=== PATIENT | male | born 1965 | race American Indian/Alaskan Native ===

== ENCOUNTER 2017-01-17 17:26 | Emergency (ER) | payer SELFPAY | END 2017-01-17 21:50 | disposition left against medical advice (07) | LOC: ED 17:26 | DX: H92.02 Otalgia, left ear (principal); Z53.21 Procedure and treatment not carried out due to patient leaving prior to being seen by health care provider ==

== ENCOUNTER 2017-01-28 04:03 | Emergency (ER) | payer SELFPAY ==
--- NOTE | 2017-01-28 07:50 | Emergency Department Report ---
ED ENT HPI - General Chief complaint: Earache Stated complaint: EAR PAIN Time Seen by Provider: 01/28/17 07:18 Source: patient Mode of arrival: Ambulatory Limitations: No Limitations - History of Present Illness Initial comments: 51-year-old male with a past medical history of hypertension comes in for complaint of left ear pain 2 weeks. Patient reports that feels like his ear is ringing it stopped up he can fill his heartbeat evident. This is been going on for about 2 weeks. Patient also reports he is out of his wet pressure medicine and was noted to have an elevated blood pressure in triage of 186/113. Patient reports that he is on verapamil 240 mg as well as hydrochlorothiazide 25 mg. He reports that he's been out of his medications for the last 2 months. Patient was recently started on this medication at [facility]. He has not had primary care or cardiology follow-up for blood pressure medicine. He has no known drug allergies. MD complaint: ear pain -: month(s) (2) Location: L ear Severity: severe Severity scale (0 -10): 8 Quality: aching Consistency: constant Improves with: none Worsens with: none Context- Ear: recent illness (colduri) Associated Symptoms: tinnitus, hearing loss - Related Data Previous Rx's Medication Instructions Recorded Last Taken Type Amoxicillin [Amoxicillin TAB] 875 mg PO BID #20 tablet 01/28/17 Unknown Rx Hydrochlorothiazide [HCTZ] 25 mg PO QDAY #60 tablet 01/28/17 Unknown Rx Loratadine/Pseudoephedrine 1 tab PO DAILY #30 tablet 01/28/17 Unknown Rx [Claritin-D 24Hr] Verapamil ER [Calan SR] 240 mg PO QDAY #60 tablet 01/28/17 Unknown Rx Allergies Allergy/AdvReac Type Severity Reaction Status Date / Time No Known Allergies Allergy Verified 01/28/17 04:33 ED Dental HPI - General Chief complaint: Earache Stated complaint: EAR PAIN Time Seen by Provider: 01/28/17 07:18 Source: patient Mode of arrival: Ambulatory Limitations: No Limitations - Related Data Previous Rx's Medication Instructions Recorded Last Taken Type Amoxicillin [Amoxicillin TAB] 875 mg PO BID #20 tablet 01/28/17 Unknown Rx Hydrochlorothiazide [HCTZ] 25 mg PO QDAY #60 tablet 01/28/17 Unknown Rx Loratadine/Pseudoephedrine 1 tab PO DAILY #30 tablet 01/28/17 Unknown Rx [Claritin-D 24Hr] Verapamil ER [Calan SR] 240 mg PO QDAY #60 tablet 01/28/17 Unknown Rx Allergies Allergy/AdvReac Type Severity Reaction Status Date / Time No Known Allergies Allergy Verified 01/28/17 04:33 ED Review of Systems ROS: Stated complaint: EAR PAIN Other details as noted in HPI Constitutional: denies: chills, fever Eyes: denies: eye pain, eye discharge, vision change ENT: ear pain, hearing loss Respiratory: denies: cough, shortness of breath, wheezing Cardiovascular: denies: chest pain, palpitations Endocrine: no symptoms reported Gastrointestinal: denies: abdominal pain, nausea, diarrhea Neurological: denies: headache, weakness, paresthesias Psychiatric: denies: anxiety, depression ED Past Medical Hx - Past Medical History Previous Medical History?: Yes Hx Hypertension: Yes - Surgical History Past Surgical History?: No - Social History Smoking Status: Current Every Day Smoker Substance Use Type: Alcohol - Medications Home Medications: Home Medications Medication Instructions Recorded Confirmed Last Taken Type Amoxicillin [Amoxicillin TAB] 875 mg PO BID #20 tablet 01/28/17 Unknown Rx Hydrochlorothiazide [HCTZ] 25 mg PO QDAY #60 tablet 01/28/17 Unknown Rx Loratadine/Pseudoephedrine 1 tab PO DAILY #30 tablet 01/28/17 Unknown Rx [Claritin-D 24Hr] Verapamil ER [Calan SR] 240 mg PO QDAY #60 tablet 01/28/17 Unknown Rx ED Physical Exam - General Limitations: No Limitations General appearance: alert, in no apparent distress - Head Head exam: Present: atraumatic, normocephalic - Expanded ENT Exam Expanded TM/Canal exam: Effusion: Left TM, Loss of Landmarks: Left TM - Neck Neck exam: Present: normal inspection. Absent: tenderness, lymphadenopathy ED Course Vital Signs 01/28/17 04:33 Temperature 98.5 F Pulse Rate 72 Respiratory 18 Rate Blood Pressure 186/113 O2 Sat by Pulse 100 Oximetry ED Medical Decision Making - Medical Decision Making Patient's been evaluated by this provider in fast track. Discussed with patient that we will discharge him on antibiotics for his left ear infusion. Discussed with patient that I will refill his blood pressure medicine and refer him to a primary care provider for further evaluation and management of hypertension. Discussed the patient I will refer him to a market research intern for further evaluation of his ear infusion. Patient verbalized understanding Critical care attestation.: If time is entered above; I have spent that time in minutes in the direct care of this critically ill patient, excluding procedure time. ED Disposition Clinical Impression: Acute otitis media with effusion of left ear, HTN (hypertension) Disposition: DISCHARGED TO HOME OR SELFCARE Is pt being admited?: No Does the pt Need Aspirin: No Condition: Stable Instructions: Hypertension (ED) Additional Instructions: Please take antibiotics as prescribed. Please follow up with market research intern for further evaluation to see if it's has resolved. Please take blood pressure medicine as prescribed I have listed a primary care provider in your discharge summary. Prescriptions: Amoxicillin [Amoxicillin TAB] 875 mg PO BID #20 tablet Hydrochlorothiazide [HCTZ] 25 mg PO QDAY #60 tablet Loratadine/Pseudoephedrine [Claritin-D 24Hr] 1 tab PO DAILY #30 tablet Verapamil ER [Calan SR] 240 mg PO QDAY #60 tablet Referrals: PRIMARY MD STEVE [Primary Care Provider] - 3-5 Days [facility] [Provider Group] - 3-5 Days FAIZAN CHERY MD [Staff Physician] - 3-5 Days Forms: Work/School Release Form(ED)
[2017-01-28 08:27] VITALS: BP 178/102
== END 2017-01-28 08:26 | disposition home or self-care (01) ==
LOC: ED 04:03
DX: H66.92 Otitis media, unspecified, left ear (principal); I10 Essential (primary) hypertension; F17.200 Nicotine dependence, unspecified, uncomplicated
CPT/HCPCS: 99282

== ENCOUNTER 2020-07-10 13:56 | Observation (INO) | payer SELFPAY ==
--- NOTE | 2020-07-10 14:07 | Emergency Department Report ---
Blank Doc - Documentation Documentation: 55-year-old male that presents with abdominal pain with n/v. This initial assessment/diagnostic orders/clinical plan/treatment(s) is/are subject to change based on patient's health status, clinical progression and re- assessment by fellow clinical providers in the ED. Further treatment and workup at subsequent clinical providers discretion. Patient/guardians urged not to elope from the ED as their condition may be serious if not clinically assessed and managed. Initial orders include: 1- Patient sent to [facility] for further evaluation and treatment 2- labs 3- UA
[2020-07-10 14:36] LABS: Basophils # (Auto) 0.1 K/mm3 (0.0-0.1); Basophils % (Auto) 0.6 % (0.0-1.8); Eosinophils # (Auto) 0.2 K/mm3 (0.0-0.4); Eosinophils % (Auto) 1.7 % (0.0-4.3); Hematocrit 45.4 % (35.5-45.6); Lymphocytes # (Auto) 3.2 K/mm3 (1.2-5.4); Lymphocytes % (Auto) 31.5 % (13.4-35.0); Mean Corpuscular HGB Conc 35 % (32-34); Mean Corpuscular Volume 96 fl (84-94); Monocytes # (Auto) 0.6 K/mm3 (0.0-0.8); Monocytes % (Auto) 6.4 % (0.0-7.3); Platelet Count 324 K/mm3 (140-440); Red Blood Count 4.71 M/mm3 (3.65-5.03); Red Cell Distribution Width 16.5 % (13.2-15.2)
[2020-07-10 14:57] LABS: Alanine Aminotransferase 20 units/L (7-56); Albumin 4.5 g/dL (3.9-5); BUN/Creatinine Ratio 9; Blood Urea Nitrogen 10 mg/dL (9-20); Calcium 9.5 mg/dL (8.4-10.2); Hemolysis Index 55
[2020-07-10] MEDS ORDERED: SODIUM CHLORIDE 0.9% 1000 ML 1,000 ML IV ONE ×2 (16:28→21:09)
[2020-07-10] MEDS ORDERED: ONDANSETRON 4 MG/2 ML INJ IV ONE ×2 (16:29→19:39)
[2020-07-10] MEDS ORDERED: HYDROmorphone 1 MG/1 ML INJ IV ONE ×2 (16:35→19:39)
[2020-07-10] MEDS ORDERED: FAMOTIDINE 20 MG/2 ML INJ IV ONE (16:35)
--- NOTE | 2020-07-10 16:39 | Emergency Department Report ---
ED Abdominal Pain HPI - General Chief Complaint: Abdominal Pain Stated Complaint: ABD PAIN Time Seen by Provider: 07/10/20 14:07 Source: patient Mode of arrival: Ambulatory Limitations: No Limitations - History of Present Illness Initial Comments: 55-year-old male with a past medical history hypertension, alcohol abuse, and alcohol abuse pancreatitis presents to the hospital complaints of upper abdominal pain, nausea, vomiting since yesterday. Patient states he has been recently drinking beer and liquor daily again. Last drink was yesterday. Kirk es history of alcohol withdrawal tremors or seizures. Pain is in the right upper quadrant described as a constant cramp/achy feeling without radiation. Pain is worse with palpation without alleviating factors positive nausea, vomiting, and diarrhea patient denies hematemesis, hematochezia, coffee-ground emesis, melena, or fever. Patient denies previous abdominal surgeries. Patient presents with hypertension has been noncompliant with BP meds at least for 1 year. - Related Data Previous Rx's Medication Instructions Recorded Last Taken Type Amoxicillin [Amoxicillin TAB] 875 mg PO BID #20 tablet 01/28/17 Unknown Rx Loratadine/Pseudoephedrine 1 tab PO DAILY #30 tablet 01/28/17 Unknown Rx [Claritin-D 24Hr] Verapamil ER [Calan SR] 240 mg PO QDAY #60 tablet 01/28/17 Unknown Rx hydroCHLOROthiazide [HCTZ] 25 mg PO QDAY #60 tablet 01/28/17 Unknown Rx Ibuprofen [Motrin 800 MG tab] 800 mg PO Q8HR PRN #15 tablet 06/10/18 Unknown Rx Valacyclovir HCl [Valtrex] 1,000 mg PO TID #21 tablet 06/10/18 Unknown Rx Allergies Allergy/AdvReac Type Severity Reaction Status Date / Time No Known Allergies Allergy Verified 01/28/17 04:33 ED Review of Systems ROS: Stated complaint: ABD PAIN Other details as noted in HPI Comment: All other systems reviewed and negative ED Past Medical Hx - Past Medical History Previous Medical History?: Yes Hx Hypertension: Yes - Surgical History Past Surgical History?: Yes Additional Surgical History: right hand surgery - Social History Smoking Status: Current Every Day Smoker Substance Use Type: Alcohol - Medications Home Medications: Home Medications Medication Instructions Recorded Confirmed Last Taken Type Amoxicillin [Amoxicillin TAB] 875 mg PO BID #20 tablet 01/28/17 Unknown Rx Loratadine/Pseudoephedrine 1 tab PO DAILY #30 tablet 01/28/17 Unknown Rx [Claritin-D 24Hr] Verapamil ER [Calan SR] 240 mg PO QDAY #60 tablet 01/28/17 Unknown Rx hydroCHLOROthiazide [HCTZ] 25 mg PO QDAY #60 tablet 01/28/17 Unknown Rx Ibuprofen [Motrin 800 MG tab] 800 mg PO Q8HR PRN #15 tablet 06/10/18 Unknown Rx Valacyclovir HCl [Valtrex] 1,000 mg PO TID #21 tablet 06/10/18 Unknown Rx ED Physical Exam - General Limitations: No Limitations - Other Other exam information: General: No acute distress Head: Atraumatic Eyes: normal appearance ENT: Moist mucous membranes Neck: Normal appearance, no midline tenderness Chest: Clear to auscultation bilaterally CV: Regular rate and rhythm Abdomen: Soft, normal bowel sounds, right upper quadrant tenderness, nondistended, no rebound or guarding Back: Normal inspection Extremity: Normal inspection, full range of motion Neuro: Alert O x 3, no facial asymmetry, speech clear, no gross motor sensory deficit Psych: Appropriate behavior Skin: No rash ED Course Vital Signs 07/10/20 07/10/20 07/10/20 14:09 16:55 18:02 Temperature 98.6 F Pulse Rate 83 72 Respiratory 20 Rate Blood Pressure 210/139 Blood Pressure 197/112 199/115 [Right] O2 Sat by Pulse 98 Oximetry 07/10/20 07/10/20 19:26 19:46 Temperature Pulse Rate 77 77 Respiratory 18 Rate Blood Pressure 191/109 191/109 Blood Pressure [Right] O2 Sat by Pulse 98 Oximetry - Reevaluation(s) Reevaluation #1: 07/10/20 19:38 Patient states his pain went from a 10/10 to a 6/10 after being treated with Dilaudid and Zofran. Nausea has improved and he has tolerated p.o. meds without vomiting. BP still remains high after initial dose of labetalol 10 then clonidine 0.1 mg. Additional pain and BP medicine ordered ED Medical Decision Making - Lab Data Result diagrams: 07/10/20 14:15 07/10/20 14:15 Lab Results 07/10/20 07/10/20 07/10/20 Range/Units 14:15 14:15 19:38 WBC 10.1 (4.5-11.0) K/mm3 RBC 4.71 (3.65-5.03) M/mm3 Hgb 16.0 H (11.8-15.2) gm/dl Hct 45.4 (35.5-45.6) % MCV 96 H (84-94) fl MCH 34 H (28-32) pg MCHC 35 H (32-34) % RDW 16.5 H (13.2-15.2) % Plt Count 324 (140-440) K/mm3 Lymph % (Auto) 31.5 (13.4-35.0) % [place] % (Auto) 6.4 (0.0-7.3) % Eos % (Auto) 1.7 (0.0-4.3) % Baso % (Auto) 0.6 (0.0-1.8) % Lymph # (Auto) 3.2 (1.2-5.4) K/mm3 [place] # (Auto) 0.6 (0.0-0.8) K/mm3 Eos # (Auto) 0.2 (0.0-0.4) K/mm3 Baso # (Auto) 0.1 (0.0-0.1) K/mm3 Seg Neutrophils % 59.8 (40.0-70.0) % Seg Neutrophils # 6.0 (1.8-7.7) K/mm3 Sodium 140 (137-145) mmol/L Potassium 3.8 (3.6-5.0) mmol/L Chloride 100.2 (98-107) mmol/L Carbon Dioxide 22 (22-30) mmol/L Anion Gap 22 mmol/L BUN 10 (9-20) mg/dL Creatinine 1.1 (0.8-1.3) mg/dL Estimated GFR > 60 ml/min BUN/Creatinine Ratio 9 % Glucose 106 H (75-100) mg/dL Calcium 9.5 (8.4-10.2) mg/dL Total Bilirubin 0.60 (0.1-1.2) mg/dL AST 22 (5-40) units/L ALT 20 (7-56) units/L Alkaline Phosphatase 101 (35-129) units/L Total Protein 8.0 (6.3-8.2) g/dL Albumin 4.5 (3.9-5) g/dL Albumin/Globulin Ratio 1.3 % Lipase 74 H (13-60) units/L Urine Color Straw (Yellow) Urine Turbidity Clear (Clear) Urine pH 6.0 (5.0-7.0) Ur Specific May 1.036 H (1.003-1.030) Urine Protein <15 mg/dl (Negative) mg/dL Urine Glucose (UA) Neg (Negative) mg/dL Urine Ketones Neg (Negative) mg/dL Urine Blood Neg (Negative) Urine Nitrite Neg (Negative) Urine Bilirubin Neg (Negative) Urine Urobilinogen < 2.0 (<2.0) mg/dL Ur Leukocyte Esterase Neg (Negative) Urine WBC (Auto) < 1.0 (0.0-6.0) /HPF Urine RBC (Auto) < 1.0 (0.0-6.0) /HPF U Epithel Cells (Auto) < 1.0 (0-13.0) /HPF Urine Mucus Few /HPF - Radiology Data Radiology results: report reviewed CT abdomen pelvis w con INDICATION: n,v,upper abd pain hx of pancreatitis. TECHNIQUE: All CT scans at this location are performed using the following dose modulation technique: Automated exposure control. Helical slices were obtained through the abdomen an d pelvis. 100 cc of Omnipaque 300 is administered. COMPARISON: None available. FINDINGS: Abdomen: No acute abnormality is seen in the lower chest. The liver, spleen, adrenal glands, and kidneys show no acute abnormality. The abdominal aorta is normal in diameter. There is no adenopathy. There is no obstruction. There is no free air. There is mild stranding in the fat adjacent to the head of the pancreas. There is mild wall thickening noted in the transverse colon and in the left and sigmoid colon. There is no inflammatory change around the colon. Pelvis: The appendix is unremarkable. There is no adenopathy. There are no abnormal fluid collections. IMPRESSION: 1. There is mild stranding in the fat adjacent to the head of the pancreas. This is a subtle finding. This may represent mild acute pancreatitis. Correlation with amylase and lipase levels is recommended. 2. There is wall thickening in the colon from the level the proximal transverse colon to the mid sigmoid colon characteristic of colitis.3 - Medical Decision Making Patient presents to the hospital with abdominal pain, nausea, vomiting, diarrhea, with recent increased alcohol use and symptoms similar to previous episodes of pancreatitis. CT confirms finding of pancreatitis but also associated colitis. Patient treated most with dose of Dilaudid and Zofran with improvement in nausea but persistent pain. Patient also has persistent hypertension despite IV labetalol and p.o. clonidine. Patient has been noncompliant with his BP meds for greater than 1 year. Patient treated with Levaquin and Flagyl for CT findings of colitis. Patient will be admitted to the hospitalist service for further treatment Critical Care Time: No Critical care attestation.: If time is entered above; I have spent that time in minutes in the direct care of this critically ill patient, excluding procedure time. ED Disposition Clinical Impression: Acute pancreatitis, Uncontrolled hypertension, Alcohol abuse, Colitis Disposition: OP ADMIT IP TO THIS HOSP Is pt being admited?: Yes Condition: Stable Time of Disposition: 21:11
--- NOTE | 2020-07-10 17:55 | Cat Scan Report ---
CT abdomen pelvis w con INDICATION: n,v,upper abd pain hx of pancreatitis. TECHNIQUE: All CT scans at this location are performed using the following dose modulation technique: Automated exposure control. Helical slices were obtained through the abdomen and pelvis. 100 cc of Omnipaque 30 0 is administered. COMPARISON: None available. FINDINGS: Abdomen: No acute abnormality is seen in the lower chest. The liver, spleen, adrenal glands, and kidn eys show no acute abnormality. The abdominal aorta is normal in diameter. There is no adenopathy. The re is no obstruction. There is no free air. There is mild stranding in the fat adjacent to the head of the pancreas. There is mild wall thickening noted in the transverse colon and in the left and sigmoid colon. There is no inflammatory change around the colon. Pelvis: The appendix is unremarkable. There is no adenopathy. There are no abnormal fluid collections . IMPRESSION: 1. There is mild stranding in the fat adjacent to the head of the pancreas. This is a subtle finding. This may represent mild acute pancreatitis. Correlation with amylase and lipase levels is recommende d. 2. There is wall thickening in the colon from the level the proximal transverse colon to the mid sigm oid colon characteristic of colitis.3 Signer Name: Jay Jay Larose MD Signed: 07/10/2020 5:50 PM Workstation Name: [id number]
[2020-07-10] MEDS ORDERED: cloNIDine 0.1 MG TAB PO ONE (18:02)
[2020-07-10 19:53] LABS: Bilirubin,Urine NEG (Negative); Blood,Urine NEG (Negative); Color,Urine Straw (Yellow); Mucus,Urine FEW /HPF; Protein,Urine <15 mg/dL mg/dL (Negative); RBC,Urine < 1.0 /HPF (0.0-6.0); Urobilinogen,Urine < 2.0 mg/dL (<2.0); WBC,Urine < 1.0 /HPF (0.0-6.0)
[2020-07-10] MEDS ORDERED: metroNIDAZOLE/NS 500 MG/100 ML 500 MG/100 ML BAG IV ONE ×2 (21:13→22:32)
[2020-07-10] MEDS ORDERED: ONDANSETRON 4 MG/2 ML INJ IV PRN (21:53)
[2020-07-10] MEDS ORDERED: ACETAMINOPHEN 325 MG TAB PO PRN (22:02)
[2020-07-10] MEDS ORDERED: HYDROmorphone 1 MG/1 ML INJ ONE (22:31)
[2020-07-10] MEDS ORDERED: SODIUM CHLORIDE 0.9% 1000 ML 1,000 ML ONE (22:31)
[2020-07-10] MEDS: HYDROmorphone 1 MG/1 ML INJ IV PRN (22:35)
[2020-07-11] MEDS: HEPARIN 5,000 UNIT/1 ML VIAL SUB-Q SCH ×2 (00:32→10:39)
[2020-07-11] MEDS: SODIUM CHLORIDE 0.9% 1000 ML 1,000 ML IV SCH ×2 (01:16→08:26)
[2020-07-11] MEDS: HYDROmorphone 1 MG/1 ML INJ IV PRN ×3 (02:41→10:41)
[2020-07-11] MEDS ORDERED: metroNIDAZOLE/NS 500 MG/100 ML 500 MG/100 ML BAG IV SCH (06:00)
--- NOTE | 2020-07-11 08:06 | Progress Note ---
Assessment and Plan - Patient Problems (1) Acute pancreatitis Current Visit: Yes Status: Acute (2) Alcohol abuse Current Visit: Yes Status: Acute (3) Colitis Current Visit: Yes Status: Acute (4) Hypertensive crisis Current Visit: Yes Status: Acute (5) Uncontrolled hypertension Current Visit: Yes Status: Acute Subjective Date of service: 07/11/20 Principal diagnosis: Acute pancreatitis colitis. Interval history: 55-year-old male with a history of hypertension, EtOH abuse pancreatitis in the past presents with abdominal pain in the right upper and lower quadrant after return to drinking. Patient has been drinking every day for several months now. Patient CT scan shows mild pancreatitis and colitis. Started on Levaquin Flagyl with aggressive pain control and IV volume hydration. Objective - Constitutional Vitals: Vital Signs - 12hr 07/10/20 07/10/20 07/10/20 21:22 22:35 22:54 Temperature 98.6 F Pulse Rate 73 73 73 Respiratory 18 18 Rate Blood Pressure 198/122 198/122 Blood Pressure 199/115 [Right] O2 Sat by Pulse 100 100 Oximetry 07/10/20 07/11/20 07/11/20 23:24 00:00 02:41 Temperature 98.3 F Pulse Rate 68 72 Respiratory 20 20 Rate Blood Pressure 194/111 Blood Pressure 144/80 [Right] O2 Sat by Pulse 98 Oximetry 07/11/20 07/11/20 07/11/20 05:52 06:17 06:18 Temperature 97.5 F L Pulse Rate 70 70 Respiratory 20 18 Rate Blood Pressure 199/108 199/108 Blood Pressure [Right] O2 Sat by Pulse 100 Oximetry General appearance: Present: no acute distress, well-nourished - EENT Eyes: PERRL, EOM intact ENT: hearing intact, clear oral mucosa Ears: bilateral: normal - Neck Neck: supple, normal ROM - Respiratory Respiratory effort: normal Respiratory: bilateral: CTA - Breasts Breasts: normal - Cardiovascular Rhythm: regular Heart Sounds: Present: S1 & S2. Absent: gallop, rub Extremities: pulses intact, No edema, normal color, Full ROM - Gastrointestinal General gastrointestinal: Present: soft, non-tender, non-distended, normal bowel sounds - Genitourinary Male genitourinary: normal - Integumentary Integumentary: clear, warm, dry - Musculoskeletal Musculoskeletal: 1, strength equal bilaterally - Neurologic Neurologic: moves all extremities - Psychiatric Psychiatric: memory intact, appropriate mood/affect, intact judgment & insight - Labs CBC & Chem 7: 07/10/20 14:15 07/10/20 14:15 Labs: Abnormal lab results 07/10/20 07/10/20 07/10/20 Range/Units 14:15 14:15 19:38 Hgb 16.0 H (11.8-15.2) gm/dl MCV 96 H (84-94) fl MCH 34 H (28-32) pg MCHC 35 H (32-34) % RDW 16.5 H (13.2-15.2) % Glucose 106 H (75-100) mg/dL Lipase 74 H (13-60) units/L Ur Specific [place] 1.036 H (1.003-1.030)
--- NOTE | 2020-07-11 08:09 | History and Physical Report ---
History of Present Illness Date of examination: 07/10/20 Date of admission: 07/10/20 21:15 Chief complaint: Abdominal pain History of present illness: 55 year old male with 2 day history of right upper quadrant abdominal pain associated with nausea, vomiting and diarrhea. Pain does not radiate and there is no history of fever, chills, shortness of breath , or chest pain . Patient admitted to be engaging in daily Alcohol abuse and has had alcohol induced pancreatitis in the past .Patient admitted to being non compliant with his anti hypertensive medication and have not taken it in 1 year. Past History Past Medical History: hypertension, other (ALCOHOL INDUCED PANCREATITIS) Past Surgical History: Other (HAND SURGERY) Social history: smoking, alcohol abuse Family history: no significant family history Medications and Allergies Allergies Allergy/AdvReac Type Severity Reaction Status Date / Time No Known Allergies Allergy Verified 01/28/17 04:33 Home Medications Medication Instructions Recorded Confirmed Last Taken Type Amoxicillin [Amoxicillin TAB] 875 mg PO BID #20 tablet 01/28/17 07/11/20 Unknown Rx Loratadine/Pseudoephedrine 1 tab PO DAILY #30 tablet 01/28/17 07/11/20 Unknown Rx [Claritin-D 24Hr] Verapamil ER [Calan SR] 240 mg PO QDAY #60 tablet 01/28/17 07/11/20 Unknown Rx hydroCHLOROthiazide [HCTZ] 25 mg PO QDAY #60 tablet 01/28/17 07/11/20 Unknown Rx Ibuprofen [Motrin 800 MG tab] 800 mg PO Q8HR PRN #15 tablet 06/10/18 07/11/20 Unknown Rx Valacyclovir HCl [Valtrex] 1,000 mg PO TID #21 tablet 06/10/18 07/11/20 Unknown Rx Active Meds: Active Medications Acetaminophen (Tylenol) 650 mg PO Q4H PRN PRN Reason: Fever >101 Heparin Sodium (Porcine) (Heparin) 5,000 unit SUB-Q Q12HR GERARDO Last Admin: 07/11/20 00:32 Dose: 5,000 unit Documented by: Hydromorphone HCl (Dilaudid) 1 mg IV Q4H PRN PRN Reason: Pain , Severe (7-10) Last Admin: 07/11/20 06:17 Dose: 1 mg Documented by: Sodium Chloride (Nacl 0.9% 1000 Ml) 1,000 mls @ 125 mls/hr IV DIRECT GERARDO Last Admin: 07/11/20 01:16 Dose: 125 mls/hr Documented by: Levofloxacin/Dextrose (Levaquin 750mg/150ml) 750 mg in 150 mls @ 100 mls/hr IV Q24HR GERARDO; Protocol Metronidazole (Flagyl 500 Mg/100 Ml) 500 mg in 100 mls @ 100 mls/hr IV Q8HR GERARDO; Protocol Last Admin: 07/11/20 05:51 Dose: 100 mls/hr Documented by: Labetalol HCl (Labetalol) 10 mg IV Q8H PRN PRN Reason: Blood Pressure Last Admin: 07/11/20 06:18 Dose: 10 mg Documented by: Ondansetron HCl (Zofran) 4 mg IV Q8H PRN PRN Reason: Nausea And Vomiting Review of Systems Constitutional: no weight loss, no weight gain, no fever, no chills, no sweats, no weakness, no malaise, no lethargy Eyes: bilateral: other (NO BILATERAL EYE SYMPTOM) Ears, nose, mouth and throat: no ear pain, no nose pain, no nasal congestion, no nasal discharge Cardiovascular: no chest pain, no orthopnea, no palpitations, no rapid/irregular heart beat, no syncope, no lightheadedness, no shortness of breath Respiratory: no cough, no cough with sputum, no excessive sputum, no hemoptysis, no shortness of breath, no dyspnea on exertion, no congestion, no wheezing, no sleep apnea Gastrointestinal: abdominal pain, nausea, vomiting, diarrhea, no constipation, no change in bowel habits, no hematemesis, no coffee ground emesis, no BRBPR, no melena, no hematochezia, no loss of appetite, no early satiety, no heartburn, no indigestion, no excessive gas Genitourinary Male: no dysuria, no hematuria, no flank pain, no discharge, no urinary frequency, no urinary hesitancy, no nocturia, no incontinence, no erectile dysfunction Rectal: no pain, no itching Musculoskeletal: no neck pain, no shooting arm pain, no arm numbness/tingling, no low back pain, no shooting leg pain, no leg numbness/tingling, no morning stiffness, no muscle weakness, no muscle cramps, no myalgias, no atrophy Integumentary: no deferred, no rash, no pruritis, no redness, no sores, no wounds, no jaundice, no boils, no blisters, no growths, no bullae, no lesions, no darkening of skin, no depigmentation, no acne, no dryness Neurological: no head injury, no transient paralysis, no paralysis, no weakness, no parathesias, no numbness, no tingling, no seizures, no syncope, no tremors, no vertigo, no headaches, no migraines, no convulsions, no aphasia, no change in speech, no change in mentation, no confusion, no memory loss Psychiatric: no anxiety, no confusion Endocrine: no cold intolerance, no heat intolerance, no polyphagia, no polyuria, no nocturia, no palpatations Exam - Constitutional Vitals: Temp Pulse Resp BP Pulse Ox 97.5 F L 70 18 199/108 100 07/11/20 05:52 07/11/20 06:18 07/11/20 06:17 07/11/20 06:18 07/11/20 05:52 General appearance: Present: mild distress - EENT Eyes: Present: PERRL, EOM intact ENT: hearing intact, clear oral mucosa, dentition normal - Neck Neck: Present: supple, normal ROM - Respiratory Respiratory effort: normal - Cardiovascular Rhythm: regular Heart Sounds: Present: S1 & S2. Absent: gallop, systolic murmur, diastolic murmur - Extremities Extremities: no ischemia, No edema Peripheral Pulses: within normal limits - Abdominal General gastrointestinal: Present: soft, tender, non-distended. Absent: non- tender, distended, rigid, hepatomegaly, splenomegaly, mass Male genitourinary: Present: deferred - Rectal Rectal Exam: deferred - Integumentary Integumentary: Present: clear, warm, dry - Musculoskeletal Musculoskeletal: strength equal bilaterally - Psychiatric Psychiatric: appropriate mood/affect HEART Score - HEART Score Age: 45-65 Risk factors: 1-2 risk factors - Critical Actions Critical Actions: 0-3 pts:0.9-1.7%risk of adverse cardiac event.Candidate for discharge Results - Labs CBC & Chem 7: 07/10/20 14:15 07/10/20 14:15 Labs: Laboratory Last Values WBC 10.1 K/mm3 (4.5-11.0) 07/10/20 14:15 RBC 4.71 M/mm3 (3.65-5.03) 07/10/20 14:15 Hgb 16.0 gm/dl (11.8-15.2) H 07/10/20 14:15 Hct 45.4 % (35.5-45.6) 07/10/20 14:15 MCV 96 fl (84-94) H 07/10/20 14:15 MCH 34 pg (28-32) H 07/10/20 14:15 MCHC 35 % (32-34) H 07/10/20 14:15 RDW 16.5 % (13.2-15.2) H 07/10/20 14:15 Plt Count 324 K/mm3 (140-440) 07/10/20 14:15 Lymph % (Auto) 31.5 % (13.4-35.0) 07/10/20 14:15 [place] % (Auto) 6.4 % (0.0-7.3) 07/10/20 14:15 Eos % (Auto) 1.7 % (0.0-4.3) 07/10/20 14:15 Baso % (Auto) 0.6 % (0.0-1.8) 07/10/20 14:15 Lymph # (Auto) 3.2 K/mm3 (1.2-5.4) 07/10/20 14:15 [place] # (Auto) 0.6 K/mm3 (0.0-0.8) 07/10/20 14:15 Eos # (Auto) 0.2 K/mm3 (0.0-0.4) 07/10/20 14:15 Baso # (Auto) 0.1 K/mm3 (0.0-0.1) 07/10/20 14:15 Seg Neutrophils % 59.8 % (40.0-70.0) 07/10/20 14:15 Seg Neutrophils # 6.0 K/mm3 (1.8-7.7) 07/10/20 14:15 Sodium 140 mmol/L (137-145) 07/10/20 14:15 Potassium 3.8 mmol/L (3.6-5.0) 07/10/20 14:15 Chloride 100.2 mmol/L (98-107) 07/10/20 14:15 Carbon Dioxide 22 mmol/L (22-30) 07/10/20 14:15 Anion Gap 22 mmol/L 07/10/20 14:15 BUN 10 mg/dL (9-20) 07/10/20 14:15 Creatinine 1.1 mg/dL (0.8-1.3) 07/10/20 14:15 Estimated GFR > 60 ml/min 07/10/20 14:15 BUN/Creatinine Ratio 9 % 07/10/20 14:15 Glucose 106 mg/dL (75-100) H 07/10/20 14:15 Calcium 9.5 mg/dL (8.4-10.2) 07/10/20 14:15 Total Bilirubin 0.60 mg/dL (0.1-1.2) 07/10/20 14:15 AST 22 units/L (5-40) 07/10/20 14:15 ALT 20 units/L (7-56) 07/10/20 14:15 Alkaline Phosphatase 101 units/L (35-129) 07/10/20 14:15 Total Protein 8.0 g/dL (6.3-8.2) 07/10/20 14:15 Albumin 4.5 g/dL (3.9-5) 07/10/20 14:15 Albumin/Globulin Ratio 1.3 % 07/10/20 14:15 Lipase 74 units/L (13-60) H 07/10/20 14:15 Urine Color Straw (Yellow) 07/10/20 19:38 Urine Turbidity Clear (Clear) 07/10/20 19:38 Urine pH 6.0 (5.0-7.0) 07/10/20 19:38 Ur Specific [place] 1.036 (1.003-1.030) H 07/10/20 19:38 Urine Protein <15 mg/dl mg/dL (Negative) 07/10/20 19:38 Urine Glucose (UA) Neg mg/dL (Negative) 07/10/20 19:38 Urine Ketones Neg mg/dL (Negative) 07/10/20 19:38 Urine Blood Neg (Negative) 07/10/20 19:38 Urine Nitrite Neg (Negative) 07/10/20 19:38 Urine Bilirubin Neg (Negative) 07/10/20 19:38 Urine Urobilinogen < 2.0 mg/dL (<2.0) 07/10/20 19:38 Ur Leukocyte Esterase Neg (Negative) 07/10/20 19:38 Urine WBC (Auto) < 1.0 /HPF (0.0-6.0) 07/10/20 19:38 Urine RBC (Auto) < 1.0 /HPF (0.0-6.0) 07/10/20 19:38 U Epithel Cells (Auto) < 1.0 /HPF (0-13.0) 07/10/20 19:38 Urine Mucus Few /HPF 07/10/20 19:38 Perez/IV: Voiding Method Toilet IV Catheter Type [Right Peripheral IV Antecubital] Assessment and Plan - Patient Problems (1) Hypertensive crisis Current Visit: Yes Status: Acute Plan to address problem: 1. I.V labetalol for blood pressure control (2) Acute pancreatitis Current Visit: Yes Status: Acute Plan to address problem: 1. NPO 2. I.V DILUDID FOR PAIN 3. I.V ZOFRAN FOR NAUSEA AND VOMITING 4. I.V NORMAL SALINE FLUID 5. RECTAL TYLENOL FOR FEVER (3) Colitis Current Visit: Yes Status: Acute Plan to address problem: 1. I.V LEVAQUIN ANTIBIOTIC 2. I.V METRONIDAZOLE ANTIBIOTIC 3. RECTAL TYLENOL FOR FEVER 4. I.V DILUDID FOR PAIN 5. I.V ZOFRAN FOR NAUSEA AND VOMITING
--- NOTE | 2020-07-11 11:08 | Discharge Summary ---
Providers - Providers Date of Admission: 07/10/20 21:15 Date of discharge: 07/11/20 Attending physician: ANDREW TOVAR None Primary care physician: SPOOL SANDER Hospitalization Condition: Good Hospital course: 55-year-old male presented with acute abdominal pain after going on a drinking binge. Patient stated he has not drink in a while and decided to drink again and developed abdominal pain associated with nausea vomiting. Patient was brought and placed on supportive care pain control aggressive IV volume hydration Zofran for nausea vomiting CIWA protocol. Patient did well was able to get up eat food greens whole food down without any abdominal pain. No rectal pain no GI bleeds no hematemesis. Patient feels much better now Disposition: DC-01 TO HOME OR SELFCARE - Discharge Diagnoses (1) Acute pancreatitis Status: Acute Comment: Mild pancreatitis resolved able to hold down fluids. Patient much better hydrated stable. No evidence of DTs. (2) Alcohol abuse Status: Acute Comment: Patient has been fine for a while. States he has AAA already in line and can follow-up. (3) Colitis Status: Acute Comment: Continue p.o. Cipro Flagyl. (4) Hypertensive crisis Status: Acute Comment: Patient had not taken medications in 1 year. Will start patient back on SHIVA inhibitor and calcium channel елена. Can follow with primary care physician to titrate accordingly. (5) Uncontrolled hypertension Status: Acute Core Measure Documentation - Palliative Care Palliative Care/ Comfort Measures: Not Applicable - Core Measures Any of the following diagnoses?: none Exam - Constitutional Vitals: Temp Pulse Resp BP Pulse Ox 97.5 F L 70 20 199/108 96 07/11/20 05:52 07/11/20 06:18 07/11/20 10:41 07/11/20 06:18 07/11/20 08:02 General appearance: Present: no acute distress, well-nourished - EENT Eyes: Present: PERRL ENT: hearing intact, clear oral mucosa - Neck Neck: Present: supple, normal ROM - Respiratory Respiratory effort: normal Respiratory: bilateral: CTA - Cardiovascular Heart Sounds: Present: S1 & S2. Absent: rub, click - Extremities Extremities: pulses symmetrical, No edema Peripheral Pulses: within normal limits - Abdominal General gastrointestinal: Present: soft, non-tender, non-distended, normal bowel sounds Male genitourinary: Present: normal - Integumentary Integumentary: Present: clear, warm, dry - Musculoskeletal Musculoskeletal: gait normal, strength equal bilaterally - Psychiatric Psychiatric: appropriate mood/affect, intact judgment & insight - Neurologic Neurologic: CNII-XII intact, moves all extremities Plan Activity: no restrictions Weight Bearing Status: Full Weight Bearing Diet: clear liquids (for 2 days a titrate up) Follow up with: PRIMARY CARE,MD [Primary Care Provider] - 7 Days Prescriptions: Verapamil ER [Calan SR] 240 mg PO QDAY #60 tablet metroNIDAZOLE [Flagyl TAB] 500 mg PO Q8HR #14 tablet hydroCHLOROthiazide [HCTZ] 25 mg PO QDAY #60 tablet levoFLOXacin [Levaquin TAB] 500 mg PO Q24HR #7 tablet Valacyclovir HCl [Valtrex] 1,000 mg PO TID #21 tablet
[2020-07-11 13:13] VITALS: BP 177/120
[2020-07-11] MEDS ORDERED: metroNIDAZOLE 500 MG TAB PO SCH (14:00)
[2020-07-11] MEDS ORDERED: LORazepam 1 MG TAB PO ONE (14:00)
[2020-07-12] MEDS ORDERED: levoFLOXacin 500 MG TAB PO SCH (10:00)
== END 2020-07-11 13:30 | disposition home or self-care (01) ==
LOC: ED 13:56 → 3A 21:15
PROVIDERS: ADMIT Internal Medicine; ATTEND Internal Medicine
DX: I16.9 Hypertensive crisis, unspecified (principal); K85.90 Acute pancreatitis without necrosis or infection, unspecified; K52.9 Noninfective gastroenteritis and colitis, unspecified; I10 Essential (primary) hypertension; F10.10 Alcohol abuse, uncomplicated; F17.210 Nicotine dependence, cigarettes, uncomplicated; Z98.890 Other specified postprocedural states
CPT/HCPCS: 36415; 74177; 80053; 81001; 83690; 85025; 96361; 96365; 96366; 96367; 96372; 96375; 96376; 99285; 99406; G0378; J1170; J1644; J1956; J2405; J7030; Q9967

== ENCOUNTER 2021-03-12 11:16 | Emergency (ER) | payer SELFPAY ==
--- NOTE | 2021-03-12 11:55 | Event Note ---
ED Screening Note ED Screening Note: Epigastric abdominal pain and vomiting that began this morning He has a history of pancreatitis Drank half a pint of liquor last night Denies any past abdominal surgical history This initial assessment/diagnostic orders/clinical plan/treatment(s) is/are subject to change based on patients health status, clinical progression and re- assessment by fellow clinical providers in the ED. Further treatment and workup at subsequent clinical providers discretion. Patient/guardian urged not to elope from the ED as their condition may be serious if not clinically assessed and managed. Initial orders include: Labs, urine
[2021-03-12 13:25] LABS: Basophils # (Auto) 0.1 K/mm3 (0.0-0.1); Basophils % (Auto) 0.4 % (0.0-1.8); Eosinophils # (Auto) 0.1 K/mm3 (0.0-0.4); Eosinophils % (Auto) 0.9 % (0.0-4.3); Lymphocytes # (Auto) 2.1 K/mm3 (1.2-5.4); Mean Corpuscular HGB Conc 36 % (32-34); Mean Corpuscular Volume 98 fl (84-94); Monocytes # (Auto) 0.8 K/mm3 (0.0-0.8); Monocytes % (Auto) 6.8 % (0.0-7.3); Platelet Count 276 K/mm3 (140-440); Red Blood Count 4.72 M/mm3 (3.65-5.03); Red Cell Distribution Width 13.5 % (13.2-15.2)
[2021-03-12 13:29] LABS: Hematocrit 46.2 % (35.5-45.6); Hemoglobin 16.5 gm/dl (11.8-15.2)
[2021-03-12 13:57] LABS: Alanine Aminotransferase 28 units/L (7-56); Albumin 4.9 g/dL (3.9-5); BUN/Creatinine Ratio 10; Blood Urea Nitrogen 13 mg/dL (9-20); Calcium 10.5 mg/dL (8.4-10.2); Hemolysis Index 1
[2021-03-12 14:02] LABS: Bacteria,Urine 1+ /HPF (Negative); Bilirubin,Urine NEG (Negative); Blood,Urine NEG (Negative); Color,Urine Amber (Yellow); Mucus,Urine 3+ /HPF; Urobilinogen,Urine < 2.0 mg/dL (<2.0)
[2021-03-12] MEDS ORDERED: FAMOTIDINE 20 MG/2 ML INJ IV ONE (16:11)
[2021-03-12] MEDS ORDERED: MORPHINE 4 MG/1 ML INJ IV ONE (16:11)
[2021-03-12] MEDS ORDERED: SODIUM CHLORIDE 0.9% 1000 ML 1,000 ML IV ONE ×2 (16:11)
[2021-03-12] MEDS ORDERED: KETOROLAC 30 MG/1 ML INJ IV ONE (16:11)
[2021-03-12] MEDS ORDERED: ONDANSETRON 4 MG/2 ML INJ IV ONE (16:11)
--- NOTE | 2021-03-12 18:24 | Emergency Department Report ---
ED Abdominal Pain HPI - General Chief Complaint: Abdominal Pain Stated Complaint: ABD PAINS Time Seen by Provider: 03/12/21 11:54 Source: patient Mode of arrival: Ambulatory Limitations: No Limitations - History of Present Illness Initial Comments: Patient is a 56-year-old F Samoan male with past medical history of pancreatitis who is complaining of some epigastric pain. Pain estimated at a 7 out of 10 in severity. She has several episodes of nausea and vomiting. Patient does drink half a pint of liquor last night. States he knows he should not be drinking but he relapsed but would like to get information on how to stop drinking as he knows this is very harmful to him. Has had no cough cold congestion fevers or chills. Denies diarrhea. No radiation to the pain. Severity scale (0 -10): 10 - Related Data Previous Rx's Medication Instructions Recorded Last Taken Type Ibuprofen [Motrin 800 MG tab] 800 mg PO Q8HR PRN #15 tablet 06/10/18 Unknown Rx Acetaminophen [Acetaminophen TAB] 650 mg PO Q4H PRN tablet 07/11/20 Unknown Rx Ondansetron HCl [Zofran] 4 mg PO Q6HR #30 tablet 07/11/20 Unknown Rx Valacyclovir HCl [Valtrex] 1,000 mg PO TID #21 tablet 07/11/20 Unknown Rx levoFLOXacin [Levaquin TAB] 500 mg PO Q24HR #7 tablet 07/11/20 Unknown Rx metroNIDAZOLE [Flagyl TAB] 500 mg PO Q8HR #14 tablet 07/11/20 Unknown Rx Verapamil ER [Calan SR] 240 mg PO QDAY #60 tablet 03/04/21 Unknown Rx hydroCHLOROthiazide [HCTZ] 25 mg PO QDAY #60 tablet 03/04/21 Unknown Rx Allergies Allergy/AdvReac Type Severity Reaction Status Date / Time No Known Allergies Allergy Verified 03/12/21 11:50 ED Review of Systems ROS: Stated complaint: ABD PAINS Other details as noted in HPI Comment: All other systems reviewed and negative ED Past Medical Hx - Past Medical History Hx Hypertension: Yes Additional medical history: tinnutus/PANCREATITIS - Surgical History Additional Surgical History: right hand surgery - Social History Smoking Status: Current Every Day Smoker Substance Use Type: Alcohol - Medications Home Medications: Home Medications Medication Instructions Recorded Confirmed Last Taken Type Ibuprofen [Motrin 800 MG tab] 800 mg PO Q8HR PRN #15 tablet 06/10/18 07/11/20 Unknown Rx Acetaminophen [Acetaminophen TAB] 650 mg PO Q4H PRN tablet 07/11/20 Unknown Rx Ondansetron HCl [Zofran] 4 mg PO Q6HR #30 tablet 07/11/20 Unknown Rx Valacyclovir HCl [Valtrex] 1,000 mg PO TID #21 tablet 07/11/20 Unknown Rx levoFLOXacin [Levaquin TAB] 500 mg PO Q24HR #7 tablet 07/11/20 Unknown Rx metroNIDAZOLE [Flagyl TAB] 500 mg PO Q8HR #14 tablet 07/11/20 Unknown Rx Verapamil ER [Calan SR] 240 mg PO QDAY #60 tablet 03/04/21 Unknown Rx hydroCHLOROthiazide [HCTZ] 25 mg PO QDAY #60 tablet 03/04/21 Unknown Rx ED Physical Exam - General Limitations: No Limitations General appearance: alert, in no apparent distress - Head Head exam: Present: atraumatic, normocephalic - Eye Eye exam: Present: normal appearance - ENT ENT exam: Present: mucous membranes moist - Neck Neck exam: Present: normal inspection - Respiratory Respiratory exam: Present: normal lung sounds bilaterally. Absent: respiratory distress, wheezes, rales, rhonchi - Cardiovascular Cardiovascular Exam: Present: regular rate, normal rhythm, normal heart sounds. Absent: systolic murmur, diastolic murmur, rubs, gallop - GI/Abdominal GI/Abdominal exam: Present: soft, tenderness (epigastric), normal bowel sounds. Absent: distended, guarding, rebound - Rectal Rectal exam: Present: deferred - Extremities Exam Extremities exam: Present: normal inspection - Back Exam Back exam: Present: normal inspection - Neurological Exam Neurological exam: Present: alert, oriented X3 - Psychiatric Psychiatric exam: Present: normal affect, normal mood - Skin Skin exam: Present: warm, dry, intact, normal color. Absent: rash ED Course Vital Signs 03/12/21 03/12/21 11:52 14:34 Temperature 97.7 F Pulse Rate 99 H 93 H Respiratory 20 22 Rate Blood Pressure 152/104 176/105 O2 Sat by Pulse 99 100 Oximetry ED Medical Decision Making - Lab Data Result diagrams: 03/12/21 12:43 03/12/21 12:43 Lab Results 03/12/21 03/12/21 03/12/21 Range/Units 12:43 12:43 13:29 WBC 12.5 H (4.5-11.0) K/mm3 RBC 4.72 (3.65-5.03) M/mm3 Hgb 16.5 H (11.8-15.2) gm/dl Hct 46.2 H (35.5-45.6) % MCV 98 H (84-94) fl MCH 35 H (28-32) pg MCHC 36 H (32-34) % RDW 13.5 (13.2-15.2) % Plt Count 276 (140-440) K/mm3 Lymph % (Auto) 17.0 (13.4-35.0) % [place] % (Auto) 6.8 (0.0-7.3) % Eos % (Auto) 0.9 (0.0-4.3) % Baso % (Auto) 0.4 (0.0-1.8) % Lymph # (Auto) 2.1 (1.2-5.4) K/mm3 [place] # (Auto) 0.8 (0.0-0.8) K/mm3 Eos # (Auto) 0.1 (0.0-0.4) K/mm3 Baso # (Auto) 0.1 (0.0-0.1) K/mm3 Seg Neutrophils % 74.9 H (40.0-70.0) % Seg Neutrophils # 9.3 H (1.8-7.7) K/mm3 Sodium 133 L (137-145) mmol/L Potassium 3.1 L (3.6-5.0) mmol/L Chloride 93.5 L (98-107) mmol/L Carbon Dioxide 22 (22-30) mmol/L Anion Gap 21 mmol/L BUN 13 (9-20) mg/dL Creatinine 1.3 (0.8-1.3) mg/dL Estimated GFR > 60 ml/min BUN/Creatinine Ratio 10 % Glucose 129 H (75-100) mg/dL Calcium 10.5 H (8.4-10.2) mg/dL Total Bilirubin 0.40 (0.1-1.2) mg/dL AST 34 (5-40) units/L ALT 28 (7-56) units/L Alkaline Phosphatase 130 H (35-129) units/L Total Protein 8.8 H (6.3-8.2) g/dL Albumin 4.9 (3.9-5) g/dL Albumin/Globulin Ratio 1.3 % Lipase 1751 H (13-60) units/L Urine Color [place] (Yellow) Urine Turbidity Slightly-cloudy (Clear) Urine pH 5.0 (5.0-7.0) Ur Specific [place] 1.027 (1.003-1.030) Urine Protein 100 mg/dl (Negative) mg/dL Urine Glucose (UA) Neg (Negative) mg/dL Urine Ketones Neg (Negative) mg/dL Urine Blood Neg (Negative) Urine Nitrite Neg (Negative) Urine Bilirubin Neg (Negative) Urine Urobilinogen < 2.0 (<2.0) mg/dL Ur Leukocyte Esterase Neg (Negative) Urine WBC (Auto) 3.0 (0.0-6.0) /HPF Urine RBC (Auto) 1.0 (0.0-6.0) /HPF U Epithel Cells (Auto) 1.0 (0-13.0) /HPF Urine Bacteria (Auto) 1+ (Negative) /HPF Urine Mucus 3+ /HPF - Medical Decision Making Patient does have elevation of his lipase. Received antiemetics and pain medications states he is feeling some improvement. Patient looks stable enough for outpatient therapy. Be on a liquid diet for the next several days and will be given prescriptions for medication for symptomatic relief. Patient also given a substance abuse outpatient program list. Critical care attestation.: If time is entered above; I have spent that time in minutes in the direct care of this critically ill patient, excluding procedure time. ED Disposition Clinical Impression: Acute pancreatitis, Alcohol abuse Disposition: TO HOME OR SELFCARE Is pt being admited?: No Does the pt Need Aspirin: No Condition: Stable Instructions: Alcohol Use Disorder, Acute Pancreatitis, [id number], Clear Liquid Diet, Adult Referrals: [facility] [Provider Group] - 3-5 Days Time of Disposition: 18:24
[2021-03-12 18:57] VITALS: BP 155/94
--- NOTE | 2021-03-19 11:08 | Electrocardiograph Report ---
[facility] Test Date: 2021-03-12 Test Time: 14:39:58 Pat Name: NAA GOODRICH Department: Room: Gender: M Regenerator Operator: JOEL : [id number] Requested By: KEM TRUONG Order Number: [id number] Reading MD: Cat Grant Measurements Intervals [place] Rate: 89 P: 52 PA: 148 QRS: -11 QRSD: 98 T: -71 QT: 383 QTc: 466 Interpretive Statements Sinus rhythm Probable left ventricular hypertrophy Nonspecific T abnormalities, inferior leads No previous ECG available for comparison Electronically Signed On 03-19-2021 11:08:24 EDT by Cat Grant
== END 2021-03-12 18:57 | disposition home or self-care (01) ==
LOC: ED 11:16
DX: K85.90 Acute pancreatitis without necrosis or infection, unspecified (principal); F10.10 Alcohol abuse, uncomplicated; I10 Essential (primary) hypertension; F17.200 Nicotine dependence, unspecified, uncomplicated; Z79.899 Other long term (current) drug therapy; Y90.9 Presence of alcohol in blood, level not specified
CPT/HCPCS: 36415; 80053; 81001; 83690; 85025; 93005; 96361; 96374; 96375; 99283; J1885; J2270; J2405; J7030